=== PATIENT | female | born 1925 | race Caucasian/White ===

== ENCOUNTER 2016-07-25 14:46 | Emergency (ER) | payer OTHER, MEDICARE ==
[~2016-07-25] VITALS: Ht 172.7 cm; Wt 71.7 kg
[2016-07-25 14:50] VITALS: BP 102/52; PULSE 81; RESP 19; TEMP 99; O2SAT 96
[2016-07-25] MEDS ORDERED: SPIR25TA4 PO (15:45)
[2016-07-25] MEDS ORDERED: NYST15PO2 TP (15:45)
[2016-07-25] MEDS ORDERED: FERR140T PO (15:45)
[2016-07-25] MEDS ORDERED: DOXY150C4 PO (15:45)
[2016-07-25] MEDS ORDERED: FURO-149 PO (15:45)
[2016-07-25] MEDS ORDERED: SODI104S3 NS (15:45)
[2016-07-25] MEDS ORDERED: SACC250C3 PO (15:45)
[2016-07-25] MEDS ORDERED: DOCU-144 PO (15:45)
[2016-07-25] MEDS ORDERED: HYDROcodone/ACETAMIN 5-325 MG TAB (NORCO/ VICODIN) PO ONE (15:45)
[2016-07-25] MEDS ORDERED: ACET-2165 PO (15:45)
[2016-07-25] MEDS ORDERED: PRO40 PO (15:45)
[2016-07-25] MEDS ORDERED: CARV3.1246 PO (15:45)
[2016-07-25] MEDS ORDERED: CEFAZOLIN 1 GM IVPB PREMIX 50 ML IV ONE (15:45)
[2016-07-25] MEDS ORDERED: CEPH-568 PO (15:45)
[2016-07-25] MEDS ORDERED: POTA10TA80 PO (15:45)
[2016-07-25] MEDS ORDERED: BACTROBAN TP ×2 (15:45)
[2016-07-25] MEDS ORDERED: NEOM1OIN10 TP (15:45)
[2016-07-25] MEDS ORDERED: HYDR-1189 PO (15:45)
[2016-07-25 15:50] LABS: BASOPHILS % (AUTO) 0.3 % (0.0-2.0); EOSINOPHILS # (AUTO) 0.4 K/uL (0.0-0.4); EOSINOPHILS % (AUTO) 6.7 % (0.0-4.0); HEMATOCRIT 25.7 % (36-48); HEMOGLOBIN 8.3 g/dL (12.0-16.0); LYMPHOCYTES # (AUTO) 0.8 K/uL (1.0-5.5); LYMPHOCYTES % (AUTO) 12.8 % (20.5-51.5); MEAN CORPUSCULAR HEMOGLOBIN 29 pg (27-31); MEAN CORPUSCULAR HGB CONC 32 % (32-36); MEAN CORPUSCULAR VOLUME 90 fL (79.0-98.0); MONOCYTES # (AUTO) 0.8 K/uL (0.0-1.0); MONOCYTES % (AUTO) 12.3 % (1.7-9.3); NEUTROPHILS # (AUTO) 4.3 K/uL (1.8-7.7); NEUTROPHILS % (AUTO) 67.9 % (40.0-70.0); PLATELET COUNT (AUTO) 191 K/uL (130-430); RED BLOOD CELL COUNT(AUTO) 2.85 MIL/uL (4.2-6.2); RED CELL DISTRIBUTION WIDTH 17.9 % (9.0-15.0); WHITE BLOOD COUNT (AUTO) 6.4 K/uL (4.8-10.8)
[2016-07-25 16:01] LABS: INR 1.1 (0.8-1.2); PROTHROMBIN TIME 11.4 SECS (9.5-12.5)
[2016-07-25 16:02] LABS: ALANINE AMINOTRANSFERASE 14 U/L (12-78); ALBUMIN 2.6 g/dL (3.4-4.8); ANION GAP 4 (5-15); ASPARTATE AMINOTRANSFERASE 19 U/L (10-37); CALCIUM 9.1 mg/dL (8.4-11.0); CHLORIDE 104 mmol/L (98-107); CREATININE 0.88 mg/dL (0.55-1.30); GLUCOSE 116 mg/dL (70-99); POTASSIUM 3.8 mmol/L (3.5-5.1); SODIUM SERUM 138 mmol/L (136-145); TOTAL BILIRUBIN 1.7 mg/dL (0.0-1.0); TOTAL PROTEIN, SERUM 5.3 g/dL (6.4-8.3); UREA NITROGEN, BLOOD 11 mg/dL (8-21)
[2016-07-25 17:07] LABS: BILIRUBIN,URINE NEGATIVE (NEGATIVE); BLOOD, URINE NEGATIVE (NEGATIVE); COLOR,URINE YELLOW (YELLOW); GLUCOSE,URINE NEGATIVE (NEGATIVE); KETONES,URINE NEGATIVE (NEGATIVE); LEUKOCYTE ESTERASE ,URINE TRACE (NEGATIVE); NITRITE, URINE NEGATIVE (NEGATIVE); PH,URINE 7.5 (5.0-8.0); PROTEIN URINE NEGATIVE (NEGATIVE); UROBILINOGEN,URINE 0.2 (0.2-1.0)
[2016-07-25 17:29] LABS: CLARITY/URINE HAZY (CLEAR)
[2016-07-25 17:32] LABS: BACTERIA,URINE MODERATE /HPF (None Seen); MUCUS,URINE None Seen /LPF (None Seen); RBC,URINE NONE SEEN /HPF (0-3)
[2016-07-25] MEDS ORDERED: DIPHENHYDRAMINE INJ 50 MG/ML VIAL IVP ONE (18:45)
[2016-07-25 19:00] VITALS: BP 124/72; PULSE 78; RESP 19; TEMP 98.9; O2SAT 97
== END 2016-07-25 19:00 | disposition home or self-care (01) ==
LOC: SED 14:46
DX: R04.0 Epistaxis (principal); L03.115 Cellulitis of right lower limb; N39.0 Urinary tract infection, site not specified; I50.9 Heart failure, unspecified; I48.91 Unspecified atrial fibrillation; I25.10 Atherosclerotic heart disease of native coronary artery without angina pectoris; Z88.1 Allergy status to other antibiotic agents; Z88.6 Allergy status to analgesic agent; Z88.5 Allergy status to narcotic agent; Z91.012 Allergy to eggs; Z91.018 Allergy to other foods; Z90.49 Acquired absence of other specified parts of digestive tract; Z98.890 Other specified postprocedural states; Z95.0 Presence of cardiac pacemaker
CPT/HCPCS: 36415; 71010; 74000; 80053; 81000; 83880; 84484; 85025; 85610; 87040; 87086; 93005; 96365; 99285; J0690; 87186-TC; J7030